=== PATIENT | male | born 1955 | race Caucasian/White ===

== ENCOUNTER → 2023-03-27 | Outpatient (CLI) | payer OTHER ==
[2023-03-27 07:57] LABS: Basophils # (auto) 0 10 ^3/uL (0-0.2); Basophils % (auto) 0.7 % (0.0-2.0); Eosinophils # (auto) 0.1 10 ^3/uL (0-0.8); Eosinophils % (auto) 1.9 % (0.0-7.0); Hematocrit 44.4 % (41.0-53.0); Hemoglobin 14.9 g/dL (13.5-17.5); Lymphocytes # (auto) 2.3 10 ^3/uL (0.4-5.4); Lymphocytes % (auto) 33.7 % (10.0-50.0); Mean Corpuscular Hemoglobin 29.8 pg (28.0-32.0); Mean Corpuscular Hgb Conc. 33.6 g/dL (32.0-36.0); Mean Corpuscular Volume 88.8 fL (80.0-100.0); Monocytes # (auto) 0.8 10 ^3/uL (0-1.3); Monocytes % (auto) 11.9 % (0.0-12.0); Neutrophils # (auto) 3.5 10 ^3/uL (1.6-8.6); Neutrophils % (auto) 51.8 % (37.0-80.0); Nucleated Red Blood Cells % 0.1 %; Red Cell Distribution Width 13.2 % (11.8-14.3); White Blood Cell 6.7 10^3/uL (4.4-10.8)
[2023-03-27 08:04] LABS: Urine Bacteria NONE SEEN /hpf (None Seen); Urine Blood 2+ /uL (Negative); Urine Clarity Clear (Clear); Urine Color Yellow (Yellow); Urine Mucus FEW (None Seen); Urine Protein, UAD Negative (Negative); Urine Specific Gravity 1.025 (1.001-1.035); Urine Urobilinogen Normal (Negative); Urine WBC 1 /hpf (0 - 3); Urine pH 5.5 (5.0-8.0)
[2023-03-27 08:35] LABS: Alanine Aminotransferase 48 U/L (7-40); Albumin 4.8 g/dL (3.2-4.8); Alkaline Phosphatase 51 U/L (46-116); Anion Gap 6 (5-15); Aspartate Aminotransferase 27 U/L (13-40); BUN/Creatinine Ratio 13.3 (10.0-20.0); Bilirubin, Total 0.6 mg/dL (0.2-1.0); Blood Urea Nitrogen 13 mg/dL (9-23); Calcium 9.5 mg/dL (8.5-10.1); Carbon Dioxide 29 mmol/L (20-30); Chloride 106 mmol/L (98-107); Cholesterol 218 mg/dL (< 200); Glucose 124 mg/dL (74-106); HDL Cholesterol 49 mg/dL (40-59); LDL Cholesterol 149 mg/dL (< 100); Sodium 141 mmol/L (136-145); Total Protein 7.6 g/dL (5.7-8.2); Triglycerides 174 mg/dL (< 150)
[2023-03-27 08:56] LABS: Prostate Specific Antigen 0.78 ng/mL (0.0-4.0)
[2023-03-27 09:01] LABS: Folate (Folic Acid) > 24.00 ng/mL (>5.38)
[2023-03-27 09:12] LABS: Magnesium 2.2 mg/dL (1.6-2.6)
[2023-03-27 09:13] LABS: Uric Acid 6.6 mg/dL (3.7-9.2)
== END | disposition home or self-care (01) ==
LOC: LAB 07:33
PROVIDERS: ATTEND Internal Medicine
DX: E61.9 Deficiency of nutrient element, unspecified (principal); R78.89 Finding of other specified substances, not normally found in blood; R68.89 Other general symptoms and signs; E78.9 Disorder of lipoprotein metabolism, unspecified; R94.6 Abnormal results of thyroid function studies; E79.0 Hyperuricemia without signs of inflammatory arthritis and tophaceous disease; E85.9 Amyloidosis, unspecified; R82.90 Unspecified abnormal findings in urine; R82.991 Hypocitraturia; R82.79 Other abnormal findings on microbiological examination of urine; D51.9 Vitamin B12 deficiency anemia, unspecified
CPT/HCPCS: 36415; 80053; 80061; 81001; 82306; 82607; 82746; 83036; 83735; 84153; 84443; 84550; 85025; 87086

== ENCOUNTER 2023-10-25 23:32 | Inpatient (IN) | payer OTHER ==
[~2023-10-25] VITALS: Ht 180.3 cm; Wt 93.8 kg
[2023-10-25 23:05] VITALS: BP 136/75; PULSE 94; RESP 16; TEMP 98.6; O2SAT 96
[2023-10-26] MEDS ORDERED: OXYC-962 PO (00:33)
[2023-10-26] MEDS ORDERED: TAMS0.4C36 PO (00:33)
[2023-10-26] MEDS ORDERED: IBUP1TAB5 PO (00:33)
[2023-10-26 01:00] VITALS: BP 130/72; PULSE 74; RESP 16; TEMP 98.4; O2SAT 90
[2023-10-26] MEDS ORDERED: MORPHINE SULFATE INJ 2 MG/ml SYRG IV PRN ×2 (03:00)
[2023-10-26] MEDS ORDERED: ACETAMINOPHEN 325 MG TAB PO PRN (03:00)
[2023-10-26] MEDS ORDERED: NITROGLYCERIN 0.4 MG SL TAB SL PRN (03:00)
[2023-10-26] MEDS ORDERED: HYDROcodone-ACET 5/325MG TAB PO PRN (03:00)
[2023-10-26 05:00] VITALS: BP 151/78; PULSE 120; RESP 16; TEMP 98.4; O2SAT 97
[2023-10-26] MEDS: SODIUM CHLORIDE 0.9% 1,000 ML IV SCH ×2 (05:54→17:59)
[2023-10-26] MEDS: HYDROcodone-ACET 5/325MG TAB PO PRN (05:55)
[2023-10-26] MEDS: DOCUSATE SOD 100 MG CAP PO PRN (05:55)
[2023-10-26 07:24] LABS: Basophils # (auto) 0 10 ^3/uL (0-0.2); Basophils % (auto) 0.2 % (0.0-2.0); Eosinophils # (auto) 0.1 10 ^3/uL (0-0.8); Eosinophils % (auto) 0.7 % (0.0-7.0); Lymphocytes # (auto) 1.7 10 ^3/uL (0.4-5.4); Lymphocytes % (auto) 16.6 % (10.0-50.0); Mean Corpuscular Hemoglobin 30.3 pg (28.0-32.0); Mean Corpuscular Hgb Conc. 34.1 g/dL (32.0-36.0); Mean Corpuscular Volume 88.7 fL (80.0-100.0); Monocytes # (auto) 1.4 10 ^3/uL (0-1.3); Neutrophils # (auto) 7.3 10 ^3/uL (1.6-8.6); Neutrophils % (auto) 69.5 % (37.0-80.0); Red Blood Cells 4.28 10^6/uL (4.5-5.90); Red Cell Distribution Width 13.4 % (11.8-14.3); White Blood Cell 10.5 10^3/uL (4.4-10.8)
[2023-10-26 07:40] LABS: Alanine Aminotransferase 18 U/L (7-40); Albumin 3.9 g/dL (3.2-4.8); Alkaline Phosphatase 51 U/L (46-116); Anion Gap 7 (5-15); Aspartate Aminotransferase 10 U/L (13-40); BUN/Creatinine Ratio 13.6 (10.0-20.0); Bilirubin, Total 0.8 mg/dL (0.2-1.0); Blood Urea Nitrogen 19 mg/dL (9-23); Calcium 8.8 mg/dL (8.5-10.1); Carbon Dioxide 24 mmol/L (20-30); Chloride 106 mmol/L (98-107); Glucose 92 mg/dL (74-106); Sodium 137 mmol/L (136-145)
[2023-10-26 07:41] LABS: Total Protein 6.4 g/dL (5.7-8.2)
[2023-10-26 09:00] VITALS: BP 110/61; PULSE 72; RESP 14; TEMP 98.5; O2SAT 92
[2023-10-26] MEDS ORDERED: traMADol HCL 50 MG TAB PO PRN (09:00)
[2023-10-26] MEDS ORDERED: cefTRIAXone 1GM/50ML D5W 50 ML IV SCH (09:00)
[2023-10-26] MEDS: MORPHINE SULFATE INJ 2 MG/ml SYRG IV PRN (10:10)
[2023-10-26] MEDS: ONDANSETRON HCL 4 MG/2 ML VIAL IV PRN (10:33)
[2023-10-26 11:53] LABS: Urine Bacteria None Seen /hpf (None Seen)
[2023-10-26 12:10] LABS: Urine Blood 2+ /uL (Negative); Urine Budding Yeast OCCASIONAL /hpf (None Seen); Urine Clarity Clear (Clear); Urine Color Light-Yellow (Yellow); Urine Protein, UAD Negative (Negative); Urine Specific Gravity 1.012 (1.001-1.035); Urine Urobilinogen Normal (Negative); Urine WBC 8 /hpf (0 - 3); Urine pH 5.5 (5.0-9.0)
[2023-10-26 12:17] LABS: Creatinine, Urine 84.93 mg/dL (30.0-125.0)
[2023-10-26 13:00] VITALS: BP 112/70; PULSE 79; RESP 16; TEMP 99.3; O2SAT 95
[2023-10-26 16:41] VITALS: BP 111/65; PULSE 81; RESP 14; TEMP 98.6; O2SAT 94
[2023-10-26] MEDS: cefTRIAXone 1GM/50ML D5W 50 ML IV ONE (16:41)
[2023-10-26] MEDS ORDERED: HYDROmorphone HCL 2 MG/ML VL/or syr IV PRN (17:30)
[2023-10-26] MEDS: MANNITOL FTV 25% 12.5 GM/50 ML 50 ML IV ONE (17:54)
[2023-10-26 21:00] VITALS: BP_SYST 125; BP_SYST 149; BP_DIAS 70; BP_DIAS 84; PULSE 116; PULSE 88; RESP 18; RESP 21; TEMP 98.2; TEMP 99.1; O2SAT 90; O2SAT 93
[2023-10-26] MEDS: KETOROLAC TROMETH 30 MG/ML 1ML VIAL IV SCH (21:29)
[2023-10-27] VITALS (7 sets, daily range): BP systolic 116–158; BP diastolic 67–83; PULSE 63–75; RESP 16–21; TEMP 97.4–98.8; O2SAT 90–94
[2023-10-27 05:58] LABS: Basophils # (auto) 0 10 ^3/uL (0-0.2); Basophils % (auto) 0.3 % (0.0-2.0); Eosinophils # (auto) 0.1 10 ^3/uL (0-0.8); Eosinophils % (auto) 1.4 % (0.0-7.0); Hematocrit 38.6 % (41.0-53.0); Hemoglobin 13.3 g/dL (13.5-17.5); Lymphocytes # (auto) 1.4 10 ^3/uL (0.4-5.4); Lymphocytes % (auto) 14.9 % (10.0-50.0); Mean Corpuscular Hemoglobin 30.5 pg (28.0-32.0); Mean Corpuscular Hgb Conc. 34.4 g/dL (32.0-36.0); Mean Corpuscular Volume 88.6 fL (80.0-100.0); Monocytes # (auto) 1.4 10 ^3/uL (0-1.3); Monocytes % (auto) 14.9 % (0.0-12.0); Neutrophils # (auto) 6.6 10 ^3/uL (1.6-8.6); Neutrophils % (auto) 68.5 % (37.0-80.0); Red Blood Cells 4.36 10^6/uL (4.5-5.90); Red Cell Distribution Width 13.2 % (11.8-14.3); White Blood Cell 9.6 10^3/uL (4.4-10.8)
[2023-10-27 06:31] LABS: Alanine Aminotransferase 21 U/L (7-40); Albumin 3.9 g/dL (3.2-4.8); Alkaline Phosphatase 50 U/L (46-116); Anion Gap 7 (5-15); Aspartate Aminotransferase 14 U/L (13-40); BUN/Creatinine Ratio 12.3 (10.0-20.0); Bilirubin, Total 0.7 mg/dL (0.2-1.0); Blood Urea Nitrogen 18 mg/dL (9-23); Calcium 9.1 mg/dL (8.5-10.1); Carbon Dioxide 25 mmol/L (20-30); Chloride 106 mmol/L (98-107); Glucose 115 mg/dL (74-106); Magnesium 2.1 mg/dL (1.6-2.6); Sodium 138 mmol/L (136-145); Total Protein 6.5 g/dL (5.7-8.2)
[2023-10-27] MEDS: cefTRIAXone 1GM/50ML D5W 50 ML IV SCH (08:42)
[2023-10-27 08:50] LABS: Free T3 2.52 pg/mL (2.3-4.2); Free T4 (Free Thyroxine) 1.22 ng/dL (0.89-1.76)
[2023-10-27] MEDS: MANNITOL FTV 25% 12.5 GM/50 ML 50 ML IV ONE (11:51)
[2023-10-27 17:13] LABS: INR 1.17 (0.9-1.15); Partial Thromboplastin Time 27.7 SEC (24.5-34.5); Prothrombin Time 12.3 sec (9.3-11.8)
[2023-10-27] MEDS: TAMSULOSIN HYDROCHLORIDE 0.4 MG CAP PO SCH (17:15)
[2023-10-27] MEDS: PANTOPRAZOLE 40 MG TAB PO ONE (17:16)
[2023-10-28] VITALS (7 sets, daily range): BP systolic 124–158; BP diastolic 69–87; PULSE 57–73; RESP 6–21; TEMP 97.5–98.9; O2SAT 92–97
[2023-10-28] MEDS: PANTOPRAZOLE 40 MG TAB PO SCH (06:23)
[2023-10-28 06:47] LABS: Anion Gap 4 (5-15); Carbon Dioxide 28 mmol/L (20-30); Chloride 106 mmol/L (98-107); Potassium 4.2 mmol/L (3.5-5.1); Sodium 138 mmol/L (136-145)
[2023-10-28 06:49] LABS: Calcium 9.3 mg/dL (8.5-10.1)
[2023-10-28 06:53] LABS: Glucose 115 mg/dL (74-106)
[2023-10-28 06:54] LABS: BUN/Creatinine Ratio 10.3 (10.0-20.0); Blood Urea Nitrogen 15 mg/dL (9-23); Magnesium 2.1 mg/dL (1.6-2.6)
[2023-10-29] VITALS (8 sets, daily range): BP systolic 125–158; BP diastolic 67–86; PULSE 65–74; RESP 17–20; TEMP 97.9–98.4; O2SAT 94–96
[2023-10-29 06:32] LABS: Basophils # (auto) 0.1 10 ^3/uL (0-0.2); Basophils % (auto) 0.6 % (0.0-2.0); Eosinophils # (auto) 0.3 10 ^3/uL (0-0.8); Hematocrit 38.2 % (41.0-53.0); Hemoglobin 12.8 g/dL (13.5-17.5); Lymphocytes # (auto) 1.3 10 ^3/uL (0.4-5.4); Lymphocytes % (auto) 15.4 % (10.0-50.0); Mean Corpuscular Hemoglobin 29.8 pg (28.0-32.0); Mean Corpuscular Hgb Conc. 33.6 g/dL (32.0-36.0); Mean Corpuscular Volume 88.6 fL (80.0-100.0); Monocytes # (auto) 1.3 10 ^3/uL (0-1.3); Monocytes % (auto) 14.6 % (0.0-12.0); Neutrophils # (auto) 5.8 10 ^3/uL (1.6-8.6); Neutrophils % (auto) 66.4 % (37.0-80.0); Red Cell Distribution Width 13.2 % (11.8-14.3); White Blood Cell 8.7 10^3/uL (4.4-10.8)
[2023-10-29 06:50] LABS: Chloride 107 mmol/L (98-107); Sodium 140 mmol/L (136-145)
[2023-10-29 06:51] LABS: Anion Gap 7 (5-15); Carbon Dioxide 26 mmol/L (20-30)
[2023-10-29 06:56] LABS: Glucose 105 mg/dL (74-106)
[2023-10-29 06:57] LABS: BUN/Creatinine Ratio 10.2 (10.0-20.0); Blood Urea Nitrogen 13 mg/dL (9-23)
[2023-10-29] MEDS: MANNITOL FTV 25% 12.5 GM/50 ML 50 ML IV ONE (15:30)
[2023-10-30 01:00] VITALS: BP 134/58; PULSE 65; RESP 18; TEMP 98.2; O2SAT 95
[2023-10-30 05:00] VITALS: BP 151/80; PULSE 75; RESP 18; TEMP 98.5; O2SAT 92
[2023-10-30 06:12] LABS: INR 1.16 (0.9-1.15); Partial Thromboplastin Time 27.6 SEC (24.5-34.5); Prothrombin Time 12.2 sec (9.3-11.8)
[2023-10-30 08:00] VITALS: RESP 20
[2023-10-30] MEDS ORDERED: CEFP200T15 PO (09:40)
[2023-10-30 10:36] VITALS: BP 130/63; PULSE 78; RESP 20; TEMP 98.3; O2SAT 98
== END 2023-10-30 11:30 | disposition home or self-care (01) | DRG 690 ==
LOC: EAST 23:33
PROVIDERS: ADMIT Internal Medicine; ATTEND Internal Medicine
DX: N13.6 Pyonephrosis (principal); N17.9 Acute kidney failure, unspecified; N40.0 Benign prostatic hyperplasia without lower urinary tract symptoms; D72.829 Elevated white blood cell count, unspecified; Z87.442 Personal history of urinary calculi; Z80.42 Family history of malignant neoplasm of prostate; Z82.49 Family history of ischemic heart disease and other diseases of the circulatory system; Z79.899 Other long term (current) drug therapy
CPT/HCPCS: 36415; 71046; 74018; 74176; 76775; 80048; 80053; 81001; 82570; 83036; 83735; 84300; 84439; 84443; 84481; 85025; 85610; 85730; 86850; 86900; 86901; 87086; G0378; J1885; J2405

== ENCOUNTER → 2023-12-17 | Outpatient (CLI) | payer OTHER ==
[~2023-12-17] MED LIST: CEFP200T15 PO; IBUP1TAB5 PO; OXYC-962 PO; TAMS0.4C36 PO
[2023-12-17 15:19] LABS: Chloride 105 mmol/L (98-107); Potassium 3.7 mmol/L (3.5-5.1); Sodium 140 mmol/L (136-145)
[2023-12-17 15:20] LABS: Anion Gap 6 (5-15); Carbon Dioxide 29 mmol/L (20-30)
[2023-12-17 15:21] LABS: Calcium 9.4 mg/dL (8.7-10.4)
[2023-12-17 15:26] LABS: BUN/Creatinine Ratio 16.1 (10.0-20.0); Blood Urea Nitrogen 15 mg/dL (9-23); Glucose 143 mg/dL (74-106)
[2023-12-17 15:36] LABS: Creatinine, Urine 179.65 mg/dL (30.0-125.0)
== END | disposition home or self-care (01) ==
LOC: LAB 14:54
PROVIDERS: ATTEND Internal Medicine
DX: E11.9 Type 2 diabetes mellitus without complications (principal)
CPT/HCPCS: 36415; 80048; 82043; 82570

== ENCOUNTER → 2024-06-09 | Outpatient (CLI) | payer OTHER ==
[~2024-06-09] MED LIST changes: -TAMS0.4C36 PO; +TAMS0.4C39 PO
[2024-06-09 08:13] LABS: Urine Bacteria None Seen /hpf (None Seen)
[2024-06-09 08:18] LABS: Basophils # (auto) 0 10 ^3/uL (0-0.2); Basophils % (auto) 0.6 % (0.0-2.0); Eosinophils # (auto) 0.2 10 ^3/uL (0-0.8); Eosinophils % (auto) 2.6 % (0.0-7.0); Hematocrit 44.5 % (41.0-53.0); Lymphocytes # (auto) 2.3 10 ^3/uL (0.4-5.4); Lymphocytes % (auto) 35.8 % (10.0-50.0); Mean Corpuscular Hemoglobin 29.8 pg (28.0-32.0); Mean Corpuscular Hgb Conc. 33.7 g/dL (32.0-36.0); Mean Corpuscular Volume 88.5 fL (80.0-100.0); Monocytes # (auto) 0.7 10 ^3/uL (0-1.3); Monocytes % (auto) 11.9 % (0.0-12.0); Neutrophils # (auto) 3.1 10 ^3/uL (1.6-8.6); Neutrophils % (auto) 49.1 % (37.0-80.0); Nucleated Red Blood Cells % 0.2 %; Platelet Count (auto) 240 10^3/uL (140-450); Red Blood Cells 5.04 10^6/uL (4.5-5.90); White Blood Cell 6.3 10^3/uL (4.4-10.8)
[2024-06-09 08:29] LABS: Urine Blood 2+ /uL (Negative); Urine Clarity Clear (Clear); Urine Color Yellow (Yellow); Urine Mucus FEW (None Seen); Urine Protein, UAD Negative (Negative); Urine Squamous Epithelial Cell None Seen /hpf (<5); Urine Urobilinogen Normal (Negative); Urine WBC < 1 /HPF (0-3); Urine pH 5.5 (5.0-9.0)
[2024-06-09 09:10] LABS: Alkaline Phosphatase 54 U/L (46-116); Anion Gap 5 (5-15); Aspartate Aminotransferase 25 U/L (13-40); BUN/Creatinine Ratio 11.3 (10.0-20.0); Blood Urea Nitrogen 12 mg/dL (9-23); Calcium 10.1 mg/dL (8.7-10.4); Carbon Dioxide 30 mmol/L (20-31); Chloride 104 mmol/L (98-107); HDL Cholesterol 53 mg/dL (40-59); Magnesium 2.2 mg/dL (1.6-2.6); Potassium 4.3 mmol/L (3.5-5.1); Sodium 139 mmol/L (136-145)
[2024-06-09 09:11] LABS: Bilirubin, Total 0.6 mg/dL (0.2-1.0); Total Protein 7.5 g/dL (5.7-8.2)
[2024-06-09 09:16] LABS: Alanine Aminotransferase 43 U/L (7-40); Albumin 4.9 g/dL (3.2-4.8); Cholesterol 226 mg/dL (< 200); Glucose 124 mg/dL (74-106); LDL Cholesterol 159 mg/dL (< 100); Triglycerides 185 mg/dL (< 150)
[2024-06-09 10:31] LABS: Prostate Specific Antigen 1.28 ng/mL (0.0-4.0)
[2024-06-09 10:48] LABS: Uric Acid 6.9 mg/dL (3.7-9.2)
[2024-06-09 10:53] LABS: Folate (Folic Acid) 27.14 ng/mL (>5.38)
== END | disposition home or self-care (01) ==
LOC: LAB 08:00
PROVIDERS: ATTEND Internal Medicine
DX: E11.43 Type 2 diabetes mellitus with diabetic autonomic (poly)neuropathy (principal); I10 Essential (primary) hypertension; N20.0 Calculus of kidney; E55.9 Vitamin D deficiency, unspecified; E78.5 Hyperlipidemia, unspecified
CPT/HCPCS: 36415; 80053; 80061; 81001; 82306; 82607; 82746; 83036; 83735; 84153; 84443; 84550; 85025; 87086

== ENCOUNTER 2025-01-14 07:53 | Outpatient (CLI) | payer OTHER ==
[2025-01-14 08:18] LABS: Hematocrit 43.1 % (41.0-53.0); Hemoglobin 14.9 g/dL (13.5-17.5); Mean Corpuscular Hemoglobin 30.1 pg (28.0-32.0); Mean Corpuscular Volume 86.9 fL (80.0-100.0); Nucleated Red Blood Cells % 0.1 %
[2025-01-14 08:33] LABS: Albumin 4.4 g/dL (3.2-4.8); Alkaline Phosphatase 51 U/L (46-116); Anion Gap 9 (5-15); BUN/Creatinine Ratio 13.4 (10.0-20.0); Blood Urea Nitrogen 13 mg/dL (9-23); Calcium 9.1 mg/dL (8.7-10.4); Carbon Dioxide 27 mmol/L (20-31); Chloride 106 mmol/L (98-107); Magnesium 2.1 mg/dL (1.6-2.6); Potassium 4.0 mmol/L (3.5-5.1); Sodium 142 mmol/L (136-145); Total Protein 7.5 g/dL (5.7-8.2)
[2025-01-14 08:34] LABS: Bilirubin, Total 0.6 mg/dL (0.2-1.0); HDL Cholesterol 50 mg/dL (40-59)
[2025-01-14 08:42] LABS: Alanine Aminotransferase 43 U/L (7-40); Cholesterol 220 mg/dL (< 200); Glucose 121 mg/dL (74-106); Triglycerides 155 mg/dL (< 150)
[2025-01-14 08:43] LABS: Urine Protein, UAD Negative (Negative)
[2025-01-14 08:48] LABS: Prostate Specific Antigen 1.32 ng/mL (0.0-4.0)
[2025-01-14 08:55] LABS: Uric Acid 6.6 mg/dL (3.7-9.2)
[2025-01-14 08:56] LABS: Microalb/Creat Ratio, Urine 11.0
== END 2025-01-14 17:00 | disposition home or self-care (01) ==
LOC: LAB 07:53
PROVIDERS: ATTEND Internal Medicine
DX: E11.9 Type 2 diabetes mellitus without complications (principal); E78.49 Other hyperlipidemia; E61.2 Magnesium deficiency; E79.0 Hyperuricemia without signs of inflammatory arthritis and tophaceous disease; E55.9 Vitamin D deficiency, unspecified; D51.9 Vitamin B12 deficiency anemia, unspecified; R82.79 Other abnormal findings on microbiological examination of urine; R82.90 Unspecified abnormal findings in urine; R82.998 Other abnormal findings in urine; R94.6 Abnormal results of thyroid function studies; R68.89 Other general symptoms and signs
CPT/HCPCS: 36415; 80053; 80061; 81001; 82043; 82306; 82570; 82607; 82746; 83036; 83735; 84153; 84403; 84443; 84480; 84550; 85025; 87086